=== PATIENT | female | born 2005 | race Caucasian/White ===

== ENCOUNTER 2024-09-14 22:06 | Emergency (ER) | payer BC, OTHER ==
[2024-09-14] MEDS ORDERED: HYDROmorphone 0.5 MG/0.5 ML SYRINGE ONE (23:34)
[2024-09-14] MEDS ORDERED: Ondansetron ODT 4 MG TAB ONE (23:36)
== END 2024-09-15 00:41 | disposition home or self-care (01) ==
LOC: CSHERS 22:06
DX: S52.572A Other intraarticular fracture of lower end of left radius, initial encounter for closed fracture (principal); V00.141A Fall from scooter (nonmotorized), initial encounter; Y93.89 Activity, other specified
CPT/HCPCS: 25605; J1171; Q0162